=== PATIENT | female | born 1985 | race Caucasian/White ===

== ENCOUNTER 2016-11-26 11:50 | Emergency (ER) | payer OTHER ==
[2016-11-26] MEDS ORDERED: IOPAMIDOL 300 (61%) 150 ML VIAL IV ONE (11:51)
[2016-11-26 12:42] LABS: SPECIFIC GRAVITY 1.015 (1.001-1.030); URINE APPEARANCE CLEAR; URINE BILIRUBIN NEGATIVE (NEGATIVE); URINE BLOOD 2+ (NEGATIVE); URINE COLOR YELLOW; URINE GLUCOSE (UA) NEGATIVE (NEGATIVE); URINE LEUKOCYTE ESTERASE NEGATIVE (NEGATIVE); URINE NITRITE NEGATIVE (NEGATIVE); URINE PROTEIN NEGATIVE (NEGATIVE); URINE UROBILINOGEN NORMAL (0-1 mg/dl)
[2016-11-26 12:45] LABS: HCG,QUALITATIVE URINE NEGATIVE
[2016-11-26 12:47] LABS: URINE BACTERIA FEW; URINE EPITHELIAL CELLS MODERATE /hpf; URINE WBC 0-1 /hpf
[2016-11-26] MEDS ORDERED: MORPHINE SULFATE 4 MG/ML SYRINGE ONE (13:10)
[2016-11-26] MEDS ORDERED: MORPHINE SULFATE 2 MG/ML SYRINGE ONE (13:10)
[2016-11-26] MEDS ORDERED: SODIUM CHLORIDE 0.9% 1,000 ML ONE (13:10)
[2016-11-26] MEDS ORDERED: ONDANSETRON 4 MG/2ML 2 ML VIAL ONE (13:10)
[2016-11-26 13:50] LABS: ABSOLUTE NEUTROPHIL COUNT 5.1 K/mm3 (1.8-7.7); BASO % 0.5 % (0.2-1.0); EOS % 0.4 % (0.9-2.9); HEMATOCRIT 39.7 % (37.0-47.0); HEMOGLOBIN 13.5 gm/l (12.0-16.0); IMM NEUT% 0.3 % (0-1); LYMPH # 2.2 (1.0-4.8); LYMPH % 28.3 % (15-45); MEAN CELL VOLUME 94.1 fl (81.0-99.0); MEAN PLATELET VOLUME 9.6 fl (7.4-10.4); MONO # 0.5 (0.0-0.8); MONO % 5.8 % (4-12); NEUT % 64.7 % (43-75); PLATELET COUNT 266 K/mm3 (130-400); RED CELL DISTRIBUTION WIDTH 12.3 % (11.5-14.5)
--- NOTE | 2016-11-26 13:55 | CT ---
ABD/PELVIS W/ CON COMPARISON: None. HISTORY: Right lower quadrant pain and vaginal bleeding. Technique: Intravenous injection 125 mL Isovue 300. Using a [employer] Aquilion [address] scanner, images were obtained from the diaphragm to the floor the pelvis. An automated dose reduction technique was used to minimize patient radiation dose. Dose information: CTDIvol (mGy): 19.10 DLP(mGycm): 1023.30 FINDINGS: Lung bases: Normal. Inferior mediastinum and heart: Normal. Liver: No change. 9.2 mm nonenhancing lesion in the lateral segment of the left lobe. 12.3 mm poorly enhancing nodule in the posterior superior medial right lobe. Gallbladder:Normal. Bile ducts: Normal. Pancreas: Normal. Spleen: Normal. Adrenal glands: Normal. Kidneys: Normal. Ureters: Normal Urinary bladder: Normal. Uterus and adnexa: Normal. Blood vessels: Normal Lymph nodes: Normal Stomach: Normal Duodenum: Normal Small intestine: Normal Appendix: Normal Colon: Normal Abdominal wall and supporting musculature: Normal Bones: Normal IMPRESSION: No acute finding. The appendix is normal. The right ovary is normal. The right kidney and ureter are normal. No change in 2 benign-appearing lesions in the liver. The report was sent to the emergency department [facility] medical record system 11/26/2016 at 13:56
[2016-11-26 14:06] LABS: ALB/GLOB RATIO 1.4 (>1.0); ALBUMIN 4.1 gm/dL (3.5-5.7); CALCIUM 9.3 mg/dL (8.6-10.3)
--- NOTE | 2016-11-26 16:06 | US ---
PELVIC COMPLETE, TRANSVAGINAL ECHOGRAPHY COMPARISON: CT abdomen and pelvis 11/26/2016 HISTORY: 31-year-old female. Pain right-sided pelvis for 3 day. Past medical history of tubal ligation with left oophorectomy 10/03/2015. LMP 11/03/2016. Normal CT scan. Technique: Transabdominal and transvaginal. FINDINGS: Uterus: Normal size, length 9.5 cm by AP 5.2 cm by transverse 6.2 cm. Homogeneous echogenicity. In the anterior corpus, 2.6 x 3.2 x 3.8 mm cyst. Endometrium: Normal thickness 11.9 mm. Right ovary: 4.6 x 2.3 x 2.8 cm. Normal blood flow. Left ovary: Removed. Adnexa mass: None Fluid: None. IMPRESSION: 1. Normal right ovary. 2. Left oophorectomy. 3. Small anterior myometrial cyst, 2.6 x 3.2 x 3.8 mm.
[2016-11-27 15:12] LABS: CHLAMYDIA BD Negative (Negative); N.GONORRHOEAE BD Negative (Negative); SOURCE Urine (())
== END 2016-11-26 16:18 | disposition home or self-care (01) ==
LOC: ED 11:50
DX: R10.2 Pelvic and perineal pain (principal); I47.1 Supraventricular tachycardia; G93.5 Compression of brain; I49.9 Cardiac arrhythmia, unspecified; Z87.891 Personal history of nicotine dependence; Z88.0 Allergy status to penicillin; Z88.2 Allergy status to sulfonamides
CPT/HCPCS: 87491; 87591; 81025; 85025; 80053; 81001; 74177; 76856; 76830; 96375; 99283 ×2; 96374; J2270 ×2; J2405; J7030; Q9967